=== PATIENT | female | born 1955 | race Caucasian/White ===

== ENCOUNTER 2018-03-19 19:15 | Outpatient (CLI) | END 2018-03-19 19:16 | disposition short-term general hospital (02) | LOC: AMBL 19:15 | PROVIDERS: ATTEND Emergency Medicine | DX: T88.8XXA Other specified complications of surgical and medical care, not elsewhere classified, initial encounter (principal); R07.9 Chest pain, unspecified; R06.82 Tachypnea, not elsewhere classified; R25.8 Other abnormal involuntary movements; H92.03 Otalgia, bilateral; M79.605 Pain in left leg; M79.604 Pain in right leg; M79.642 Pain in left hand; M79.641 Pain in right hand ==